=== PATIENT | female | born 1935 | race Caucasian/White ===

== ENCOUNTER 2017-04-25 19:41 | Emergency (ER) | payer MEDICARE, OTHER ==
[~2017-04-25] VITALS: Ht 152.4 cm; Wt 72.6 kg
[~2017-04-25 19:41] MED LIST: ABILIFY2 MG PO; BENICAR40 MG ORAL; DILAUDID4 MG ORAL; DOXEPIN HCL10 M1 PO; DURAGESIC; FOLIC ACID1 MG ORAL; HYDROMORPHONE HC4 M1 PO; LABETALOL HCL200 MG PO; LEVAQUIN500 MG ORAL; LEVOTHYROXINE25 MCG PO; LISINOPRIL20 MG PO; LYRICA50 MG PO; MELATONIN 5 MG1 EAC1 ORAL; MELATONIN1 MG PO; MELOXICAM15 MG; MOBIC15 MG ORAL; NITROFURANTOIN100 M2 ORAL; SONATA10 MG PO; TORSEMIDE10 MG PO; TRIAMTERENE-HC1 EAC5 PO; XANAX0.5 MG ORAL; ZENPEP DR 10,01 EACH PO; ZENPEP DR 15,01 EACH PO; ZOFRAN ODT4 MG ORAL; ZOFRAN8 MG ORAL; ZOLPIDEM TARTRA10 MG PO
[2017-04-25 19:50] VITALS: BP 165/89
[2017-04-25] MEDS ORDERED: XIFAXAN550 MG ORAL ×2 (20:21→20:22)
[2017-04-25] MEDS ORDERED: DILAUDID4 MG ORAL (20:21)
[2017-04-25] MEDS ORDERED: LUNESTA3 MG ORAL (20:21)
[2017-04-25] MEDS ORDERED: TORSEMIDE10 MG PO (20:21)
[2017-04-25] MEDS ORDERED: RELISTOR12 MG/0.1 PO (20:21)
[2017-04-25] MEDS ORDERED: XANAX0.5 MG ORAL (20:21)
[2017-04-25 21:05] VITALS: BP 150/88
[2017-04-25 21:15] LABS: ANION GAP 10 mmol/L (5-15); BLOOD UREA NITROGEN 11 mg/dL (7-18); CALCIUM 10.3 MG/DL (8.5-10.1); CARBON DIOXIDE 27 MMOL/L (21-32); CHLORIDE 95 MMOL/L (98-107); CREATININE 1.1 MG/DL (0.55-1.30); POTASSIUM 4.2 MMOL/L (3.5-5.1); SODIUM 131 MMOL/L (136-145)
[2017-04-25 21:18] LABS: BASOPHILS % (AUTO) 1.5 % (0.0-2.0); EOSINOPHILS % (AUTO) 2.2 % (0.0-3.0); HEMATOCRIT 35.1 % (37.0-47.0); HEMOGLOBIN 12.3 G/DL (12.0-16.0); LYMPHOCYTES % (AUTO) 25.9 % (20.0-45.0); MEAN CORPUSCULAR VOLUME 91 FL (80-99); MONOCYTES % (AUTO) 7.1 % (1.0-10.0); NEUTROPHILS % (AUTO) 63.4 % (45.0-75.0); PLATELET COUNT 205 K/UL (150-450); RED BLOOD COUNT 3.85 M/UL (4.20-5.40); RED CELL DISTRIBUTION WIDTH 11.5 % (11.6-14.8); WHITE BLOOD COUNT 5.2 K/UL (4.8-10.8)
[2017-04-25 21:20] LABS: ALANINE AMINOTRANSFERASE 18 U/L (12-78); ALKALINE PHOSPHATASE 125 U/L (46-116); ASPARTATE AMINO TRANSFERASE 34 U/L (15-37); BILIRUBIN,TOTAL 0.8 MG/DL (0.2-1.0)
[2017-04-25] MEDS ORDERED: HYDROmorphone 1mg/ml Carpuject IVP ONE (21:30)
--- NOTE | 2017-04-25 22:21 | Emergency Room Report ---
History of Present Illness General Chief Complaint: Abdominal Pain Source: Patient, EMS Present Illness HPI Patient states that a couple weeks ago she had been diagnosed with colitis. She is still on some medication for this that she has not quite finished. She is concerned that she has had a flare of her pancreatitis. She has a history of pancreatitis and states that she has had some epigastric pain consistent with this over the past 3 days. She describes the pain is in her upper abdomen area. She did have one episode of diarrhea after taking laxatives and stool softeners. She states that she is on Dilaudid for chronic pain and so she gets constipated. She denies vomiting. She denies fever or chills. She denies dysuria or hematuria. She denies chest pain or shortness of breath. She has no other complaints. Allergies: Coded Allergies: No Known Allergies (Verified , 11/05/06) Patient History Past Medical History: see triage record, other - pancreatitis Past Surgical History: tana Social History: Denies: smoking, alcohol use, drug use Last Menstrual Period: none Reviewed Nursing Documentation: PMH: Agreed, PSxH: Agreed Nursing Documentation-PMH Hx Cardiac Problems: Yes Hx Hypertension: Yes Hx Cancer: No Hx Dialysis: No - Renal defincensies Hx Neurological Problems: No Review of Systems All Other Systems: negative except mentioned in HPI Physical Exam Vital Signs Date Time Temp Pulse Resp B/P (MAP) Pulse Ox O2 Delivery O2 Flow Rate FiO2 04/25/17 19:33 98.6 88 18 138/96 99 Room Air 98.6 Sp02 EP Interpretation: reviewed, normal General Appearance: no apparent distress, alert, GCS 15, non-toxic Head: normocephalic, atraumatic Eyes: bilateral eye normal inspection, bilateral eye PERRL ENT: hearing grossly normal, normal pharynx, no angioedema, normal voice Neck: full range of motion, supple/symm/no masses Respiratory: chest non-tender, lungs clear, normal breath sounds, speaking full sentences Cardiovascular #1: regular rate, rhythm, no edema Gastrointestinal: normal bowel sounds, non tender, soft, non-distended, no guarding, no rebound Rectal: deferred Musculoskeletal: back normal, gait/station normal, normal range of motion, non- tender Neurologic: alert, oriented x3, responsive, motor strength/tone normal, sensory intact, speech normal Psychiatric: judgement/insight normal, memory normal, mood/affect normal, no suicidal/homicidal ideation Skin: normal color, no rash, warm/dry, well hydrated Medical Decision Making Diagnostic Impression: Primary Impression: Abdominal pain ER Course This patient presents with epigastric pain. The patient's laboratory workup is unremarkable. There is no evidence of pancreatitis. Patient's right upper quadrant ultrasound is unremarkable. The patient has a history of cholecystectomy so there is no possibility of cholelithiasis or cholecystitis. Overall, the patient's abdominal exam is benign. Possibly this is a gastritis related to recent antibiotic use. Regardless, I do not feel this patient needs more advanced imaging such as CT of the abdomen and pelvis at this time. I have a low suspicion for acute intra-abdominal process. The patient declined gastritis medications. She did request IV Dilaudid. At this time I did not identify an emergency medical condition. The patient given return precautions and follow-up instructions. Laboratory Tests Test 04/25/17 20:45 White Blood Count 5.2 K/UL (4.8-10.8) Red Blood Count 3.85 M/UL (4.20-5.40) L Hemoglobin 12.3 G/DL (12.0-16.0) Hematocrit 35.1 % (37.0-47.0) L Mean Corpuscular Volume 91 FL (80-99) Mean Corpuscular Hemoglobin 31.9 PG (27.0-31.0) H Mean Corpuscular Hemoglobin Concent 35.0 G/DL (32.0-36.0) Red Cell Distribution Width 11.5 % (11.6-14.8) L Platelet Count 205 K/UL (150-450) Mean Platelet Volume 6.3 FL (6.5-10.1) L Neutrophils (%) (Auto) 63.4 % (45.0-75.0) Lymphocytes (%) (Auto) 25.9 % (20.0-45.0) Monocytes (%) (Auto) 7.1 % (1.0-10.0) Eosinophils (%) (Auto) 2.2 % (0.0-3.0) Basophils (%) (Auto) 1.5 % (0.0-2.0) Sodium Level 131 MMOL/L (136-145) L Potassium Level 4.2 MMOL/L (3.5-5.1) Chloride Level 95 MMOL/L (98-107) L Carbon Dioxide Level 27 MMOL/L (21-32) Anion Gap 10 mmol/L (5-15) Blood Urea Nitrogen 11 mg/dL (7-18) Creatinine 1.1 MG/DL (0.55-1.30) Estimate Glomerular Filtration Rate mL/min (>60) Glucose Level 94 MG/DL (74-106) Calcium Level 10.3 MG/DL (8.5-10.1) H Total Bilirubin 0.8 MG/DL (0.2-1.0) Aspartate Amino Transferase (AST) 34 U/L (15-37) Alanine Aminotransferase (ALT) 18 U/L (12-78) Alkaline Phosphatase 125 U/L (46-116) H Total Protein 8.1 G/DL (6.4-8.2) Albumin 4.0 G/DL (3.4-5.0) Globulin 4.1 g/dL Albumin/Globulin Ratio 1.0 (1.0-2.7) Lipase 182 U/L (73-393) CT/MRI/US Diagnostic Results CT/MRI/US Diagnostic Results : Imaging Test Ordered: RUQ US Impression Negative. See official report. Last Vital Signs Date Time Temp Pulse Resp B/P (MAP) Pulse Ox O2 Delivery O2 Flow Rate FiO2 04/25/17 21:24 98.4 04/25/17 19:50 81 21 165/89 100 Room Air Status: improved Disposition: HOME, SELF-CARE Condition: Stable Referrals: MIRACLE SOUZA (PCP) Patient Instructions: Abdominal Pain, Adult COLIVAHID FARLEY D.O. Apr 25, 2017 22:21
[2017-04-25 22:41] LABS: APPEARANCE,URINE CLEAR; BILIRUBIN, URINE NEGATIVE (NEGATIVE); COLOR,URINE PALE YELLOW; GLUCOSE, URINE (UA) NEGATIVE (NEGATIVE); KETONES,URINE NEGATIVE (NEGATIVE); LEUKOCYTE ESTERASE ,URINE 1+ (NEGATIVE); NITRITE,URINE NEGATIVE (NEGATIVE); PH,URINE 7 (4.5-8.0); PROTEIN,URINE NEGATIVE (NEGATIVE); UROBILINOGEN,URINE NORMAL MG/DL (0.0-1.0)
[2017-04-25 22:50] VITALS: BP 149/63
[2017-04-25 22:55] VITALS: BP 149/63
--- NOTE | 2017-04-26 10:53 | Diagnostic Imaging Report ---
Indication:Abdominal pain Technique: Grayscale and duplex Doppler imaging of the abdomen performed. Comparison: None Findings: The liver, demonstrated part of the pancreas, aorta and IVC, the right kidney, appear unremarkable. There is no biliary ductal dilatation identified. CBD is 2 mm. Doppler evaluation of the main portal vein shows patency. There is no visualized ascites. No hydronephrosis seen. Spleen and left kidney are not demonstrated. Impression: No acute findings. Status post cholecystectomy Multiple renal cysts
== END 2017-04-25 22:55 | disposition home or self-care (01) ==
LOC: EDBD 19:41 → EMR 20:00
DX: R10.13 Epigastric pain (principal); Z87.19 Personal history of other diseases of the digestive system; I10 Essential (primary) hypertension; N28.1 Cyst of kidney, acquired; Z90.49 Acquired absence of other specified parts of digestive tract
CPT/HCPCS: 36415; 76705; 80053; 81003; 83690; 85025; 96361; 96374; 99284; J1170